=== PATIENT | male | born 1955 | race Caucasian/White ===

== ENCOUNTER 2022-02-01 08:01 | Day surgery (SDC) | payer MEDICARE, OTHER ==
[2022-01-25 10:06] LABS: CLARITY,URINE CLEAR (Clear); COLOR,URINE YELLOW (Yellow); GLUCOSE, URINE NEGATIVE (Neg); KETONES,URINE NEGATIVE (Neg); LEUKOCYTE ESTERASE ,URINE NEGATIVE (Neg); NITRITES, URINE NEGATIVE (Neg); OCCULT BLOOD,URINE NEGATIVE (Neg); PH,URINE 5.5 (4.8-8.0); PROTEIN,URINE NEGATIVE (Neg); UROBILINOGEN,URINE 0.2 E.U/dL (0.2-1.0)
[2022-01-25 10:09] LABS: UA COLLECTION TYPE CLN CATCH MIDSTREAM
[2022-01-25 10:14] LABS: BASOPHILS # (AUTO) 0.1 X10'3 (0-0.2); BASOPHILS % (AUTO) 0.8 % (0-1); EOSINOPHILS # (AUTO) 0.1 X10'3 (0-0.9); EOSINOPHILS % (AUTO) 2.3 % (0-6); LYMPHOCYTES # (AUTO) 1.5 X10'3 (1.1-4.8); LYMPHOCYTES % (AUTO) 24.2 % (21-51); MEAN CORPUSCULAR HEMOGLOBIN 35.5 PG (27.0-31.0); MEAN CORPUSCULAR HGB CONC 34.6 g/dL (33.0-36.5); MEAN CORPUSCULAR VOLUME 102.7 FL (78-98); MEAN PLATELET VOLUME 7.5 FL (7.4-10.4); MONOCYTES # (AUTO) 0.7 X10'3 (0-0.9); MONOCYTES % (AUTO) 11.7 % (2-12); NEUTROPHILS # (AUTO) 3.8 X10'3 (1.8-7.7); PRE OP HEMATOCRIT 45.8 % (42.0-52.0); PRE OP HEMOGLOBIN 15.8 g/dL (14.0-17.9); PRE OP PLATELET COUNT 227 X10'3 (140-440); RED BLOOD COUNT 4.46 X10'6 (4.70-6.10); RED CELL DISTRIBUTION WIDTH 13.4 % (11.5-14.5)
[2022-01-25 10:20] LABS: ALBUMIN 3.4 G/DL (3.4-5.0); ALBUMIN/GLOBULIN RATIO 0.9 (1.1-1.5); ALKALINE PHOSPHATASE 72 IU/L (46-116); BLOOD UREA NITROGEN 10 MG/DL (7-18); BUN/CREATININE RATIO 10.6 (5.4-32.0); CALCIUM 8.7 MG/DL (8.5-10.1); CHLORIDE 103 MMOL/L (99-107); CREATININE 0.94 MG/DL (0.60-1.10); PRE OP ALT 27 U/L (30-65); PRE OP ANION GAP 9 (8-16); PRE OP AST 19 U/L (10-37); PRE OP BILIRUB, TOTAL 0.7 MG/DL (0.0-1.0); PRE OP GLUCOSE 111 MG/DL (70-104); PRE OP POTASSIUM 3.9 MMOL/L (3.4-5.1); PRE OP SODIUM 141 MMOL/L (135-145); TOTAL CARBON DIOXIDE 29.2 MMOL/L (24-32); TOTAL PROTEIN 7.2 G/DL (6.4-8.2); eGFR 81 ML/MIN
[2022-02-01] VITALS (18 sets, daily range): BP systolic 107–162; BP diastolic 60–88
[~2022-02-01] VITALS: Ht 167.6 cm; Wt 49.9 kg
[~2022-02-01 08:01] MED LIST: NO HOME MEDS; ceFAZolin inj. 2,000 MG in dextrose 5%-water 100 ML IV ONE; famotidine 20mg tablet PO ONE; ringers solution, lacted 1,000 ML IV SCH
[2022-02-01] MEDS ORDERED: albuterol 2.5 MG/3 ML nebule NEB ONE (08:45)
[2022-02-01] MEDS ORDERED: ipratropium/albuterol 3ml nebule NEB PRN ×2 (09:05→12:15)
[2022-02-01] MEDS ORDERED: meperidine/PF 25mg/ml syringe IV PRN ×6 (09:15→11:00)
[2022-02-01] MEDS ORDERED: morphine 2 MG/ML inj. syringe IV PRN ×2 (09:15→11:00)
[2022-02-01] MEDS ORDERED: ondansetron/PF 4mg/2ml inj IV PRN ×2 (09:15→11:00)
[2022-02-01] MEDS ORDERED: proCHLORperazine 10 MG/2 ml inj IV PRN ×2 (09:15→11:00)
[2022-02-01] MEDS ORDERED: morphine 4 MG/ML inj SYRINge IV PRN ×2 (09:15→11:00)
[2022-02-01] MEDS ORDERED: ringers solution, lacted 1,000 ML IV SCH ×2 (09:15→11:00)
[2022-02-01] MEDS ORDERED: sevoflurane 250ml liquid IH ONE (09:52)
[2022-02-01] MEDS ORDERED: ondansetron/PF 4mg/2ml inj ONE (09:52)
[2022-02-01] MEDS ORDERED: BUPIVAcaine/PF 2.5 mg/ml (0.25%) 30ml vial ONE (09:55)
[2022-02-01] MEDS ORDERED: fentaNYL/PF 50MCG/1 ML 2ML syringe ONE (10:00)
[2022-02-01] MEDS ORDERED: midazolam 1 mg/ML 2ml injection ONE (10:00)
[2022-02-01] MEDS ORDERED: propofol inj 20 ML IV ONE (10:03)
[2022-02-01] MEDS ORDERED: LIDOcaine 2% (20mg/ml) 5ml vial ONE (10:03)
[2022-02-01] MEDS ORDERED: LIDOcaine 2% jelly 6ml syringe ***for topical use only ONE (10:20)
[2022-02-01] MEDS ORDERED: dexamethasone sod phosphate 4mg/ml inj. ONE (10:58)
[2022-02-01] MEDS ORDERED: morphine 4 MG/ML inj SYRINge ONE (10:58)
[2022-02-01] MEDS ORDERED: rocuronium 10mg/ml inj IV ONE (10:58)
--- NOTE | 2022-02-01 12:11 | NUR ---
Received from OR via [facility], accompanied by Anesthesiologist and report given by HUMBERTO Anesthesiologist. PATIENT WAKING UP, DENIES PAIN, V/S WNL, PIV 20G MARI, DERMONDVASYL LAPS SITES CLOSED CDI TO ABDOMEN. Addendum: 02/01/22 at 1244 by Ck Sosa RN Amended: Links added.
--- NOTE | 2022-02-01 15:01 | NUR ---
ALL DISCHARGE CRITERIA HAS BEEN MET. VSS, PAIN AT A TOLERABLE LEVEL, VOIDING AND ABLE TO SAFELY AMBULATE AND TRANSFER SELF. IV TAKEN OUT WITHOUT ANY COMPLICATIONS. ALL DISCHARGE INSTRUCTIONS COVERED WITH PATIENT AND ALL QUESTIONS ANSWERED. PATIENT TAKEN OUT VIA WHEELCHAIR WITH ALL BELONGINGS TO PERSONAL VEHICLE WHERE FAMILY DROVE PATIENT HOME. Addendum: 02/01/22 at 1515 by Ck Sosa RN Amended: Links added.
== END 2022-02-01 15:01 | disposition home or self-care (01) ==
LOC: PAS 08:01
PROVIDERS: ATTEND Surgery
DX: K40.91 Unilateral inguinal hernia, without obstruction or gangrene, recurrent (principal); F17.210 Nicotine dependence, cigarettes, uncomplicated; Z79.899 Other long term (current) drug therapy; Z98.890 Other specified postprocedural states; J44.9 Chronic obstructive pulmonary disease, unspecified
CPT/HCPCS: 36415; 49651; 71046; 80053; 81003; 82948; 85025; 87811; 93005; 94640; 94664; 94760; C1758; C1781; J0690; J1100; J2250; J2270; J2405; J2704; J3010; J3490; J7030; J7060; J7120; Z7506; Z7508; Z7512; A4215; A4618

== ENCOUNTER 2024-03-30 11:47 | Inpatient (IN) | payer MEDICARE, OTHER ==
[~2024-03-30] VITALS: Ht 167.6 cm; Wt 46.6 kg
[2024-03-30] VITALS (9 sets, daily range): BP systolic 93; BP diastolic 55; PULSE 100–122; RESP 16–22; TEMP 98; O2SAT 89–98
[~2024-03-30 11:47] MED LIST changes: -ceFAZolin inj. 2,000 MG in dextrose 5%-water 100 ML IV ONE; -famotidine 20mg tablet PO ONE; -ringers solution, lacted 1,000 ML IV SCH
[2024-03-30 12:02] LABS: BASOPHILS # (AUTO) 0.1 X10'3 (0-0.2); BASOPHILS % (AUTO) 0.6 % (0-1); EOSINOPHILS % (AUTO) 0.5 % (0-6); HEMATOCRIT 51.2 % (42.0-52.0); HEMOGLOBIN 17.1 g/dl (14.0-17.9); LYMPHOCYTES # (AUTO) 2.1 X10'3 (1.1-4.8); LYMPHOCYTES % (AUTO) 25.2 % (21-51); MEAN CORPUSCULAR HEMOGLOBIN 35.6 PG (27.0-31.0); MEAN CORPUSCULAR HGB CONC 33.5 g/dL (33.0-36.5); MEAN CORPUSCULAR VOLUME 106.4 FL (78-98); MEAN PLATELET VOLUME 7.3 FL (7.4-10.4); MONOCYTES # (AUTO) 0.8 X10'3 (0-0.9); MONOCYTES % (AUTO) 8.9 % (2-12); NEUTROPHILS # (AUTO) 5.5 X10'3 (1.8-7.7); NEUTROPHILS % (AUTO) 64.8 % (42-75); PLATELET COUNT 228 X10'3 (140-440); RED BLOOD COUNT 4.81 X10'6 (4.70-6.10); RED CELL DISTRIBUTION WIDTH 13.2 % (11.5-14.5); WHITE BLOOD COUNT 8.4 X10'3 (4.5-11.0)
[2024-03-30 12:14] LABS: ALANINE AMINOTRANSFERASE 23 U/L (12-78); ALBUMIN 3.6 G/DL (3.4-5.0); ALBUMIN/GLOBULIN RATIO 0.9 (1.1-1.5); ALKALINE PHOSPHATASE 92 IU/L (46-116); ANION GAP 11 (8-16); ASPARTATE AMINO TRANSFERASE 30 U/L (10-37); BILIRUBIN,TOTAL 0.9 MG/DL (0.1-1.0); BLOOD UREA NITROGEN 10 MG/DL (7-18); BUN/CREATININE RATIO 8.3 (10.0-20.0); CALCIUM 9.2 MG/DL (8.5-10.1); CHLORIDE 102 MMOL/L (99-107); GLUCOSE 156 MG/DL (70-104); POTASSIUM 4.8 MMOL/L (3.5-5.1); SODIUM 139 MMOL/L (135-145); TOTAL PROTEIN 7.6 G/DL (6.4-8.2); eGFR 60 ML/MIN
[2024-03-30 12:21] LABS: PRO BRAIN NATRIURETIC PEPTIDE 2520 PG/ML (0-125)
[2024-03-30] MEDS: ipratropium/albuterol 3ml nebule NEB PRN (12:48)
[2024-03-30] MEDS ORDERED: iohexol 350MG/ML 100ml bottle IV ONE (13:31)
[2024-03-30] MEDS ORDERED: nicotine prolacrilex 2mg gum BC PRN (13:40)
[2024-03-30] MEDS ORDERED: NICOTINE POLACRILEX 2 MG LOZENGE BC PRN (13:40)
[2024-03-30] MEDS: nicotine 21mg patch - 24 hr TD ONE (14:09)
[2024-03-30] MEDS: LORazepam 2 mg/ml vial IV ONE (14:09)
[2024-03-30] MEDS ORDERED: magnesium sulf-water 4G/100mL 100 ML IV PRN (15:45)
[2024-03-30] MEDS ORDERED: mag hydrox/Alum hydrox/simeth 30ml oral suspension PO PRN (15:45)
[2024-03-30] MEDS ORDERED: ondansetron/PF 4mg/2ml inj IV PRN (15:45)
[2024-03-30] MEDS ORDERED: acetaminophen 325mg tablet PO PRN ×2 (15:45)
[2024-03-30] MEDS ORDERED: HYDROcodone/acetaminophen 5mg/325mg tablet PO PRN (15:45)
[2024-03-30] MEDS ORDERED: HYDROcodone/acetaminophen 10/325mg tab PO PRN (15:45)
[2024-03-30] MEDS ORDERED: potassium Cl 40MEQ/1/2NS 520ml 520 ML IV PRN (15:45)
[2024-03-30] MEDS ORDERED: potassium Cl 20 mEq SR tablet PO PRN ×2 (15:45)
[2024-03-30] MEDS ORDERED: magnesium hydroxide 30ml (MOM) UD suspension PO PRN (15:45)
[2024-03-30] MEDS ORDERED: magnesium sulf-water 2g/50mL 50 ML IV PRN (15:45)
[2024-03-30 15:54] LABS: PROTHROMBIN TIME 10.9 SECONDS (9.0-12.0)
[2024-03-30] MEDS ORDERED: ipratropium/albuterol 3ml nebule NEB PRN (16:00)
[2024-03-30] MEDS: heparin 10,000 units/1 ML INJ IV ONE (16:21)
[2024-03-30] MEDS: heparin 25,000 UNIT/250ml bag 250 ML IV PRN (16:24)
[2024-03-30] MEDS: MESSAGE TO NURSING IV ONE (16:26)
[2024-03-30] MEDS: HEPARIN DRIP DVT/PE -**PHARMACIST TO DOSE IV ONE (16:26)
[2024-03-30] MEDS: methylPREDNISolone sod succ 125mg/2ml vial IV SCH (18:20)
[2024-03-30] MEDS ORDERED: LORazepam 1 MG tablet PO PRN (18:30)
[2024-03-30] MEDS ORDERED: haloperidol lactate 5mg/ml inj IM PRN (18:30)
[2024-03-30] MEDS ORDERED: haloperidol 5mg tablet PO PRN (18:30)
[2024-03-30 19:02] LABS: ABG BASE EXCESS -1.9 mmol/L (-2.0-3.0); ABG HCO3 20.9 mmol/L (21.0-28.0); ABG OXYGEN SATURATION 95.1 % (94.0-98.0); ABG PH (T) 7.447 (7.350-7.450); ABG PO2 (T) 80.6 mmHg (83.0-108.0); ALLEN'S TEST POSITIVE; FCOHb 0.8 % (0.5-1.5); FHHb 4.8 % (0.0-5.0); FLOW 3 L/min; FMetHb 0.3 % (0.0-1.5); FO2Hb 94.1 % (94.0-98.0); MODE NASAL CANNULA; TOTAL HEMOGLOBIN 16.1 G/dl (13.5-17.5)
[2024-03-30] MEDS: nicotine 14mg patch - 24hr TD SCH (19:30)
[2024-03-30] MEDS: ipratropium/albuterol 3ml nebule NEB SCH (19:35)
[2024-03-30] MEDS: thiamine 100mg tablet PO SCH (19:49)
[2024-03-30] MEDS: folic acid 1mg tablet PO SCH (19:49)
[2024-03-30] MEDS: methylPREDNISolone sod succ 125mg/2ml vial IV STA (19:50)
[2024-03-30] MEDS: docusate sod 100mg capsule PO SCH (20:00)
[2024-03-30] MEDS: K and/or MAG REPLACEMENT MC SCH (20:00)
[2024-03-30] MEDS: CefTRIAXone 2gm/D5W 50ml BAG 50 ML IV SCH (20:06)
[2024-03-30] MEDS: azithromycin/NS 500mg/250ml 250 ML IV SCH (20:06)
[2024-03-30] MEDS: LORazepam 2 mg/ml vial IV PRN (20:07)
[2024-03-30 21:00] LABS: BILIRUBIN,URINE NEGATIVE (Neg); CLARITY,URINE CLEAR (Clear); COLOR,URINE STRAW (Yellow); GLUCOSE, URINE NEGATIVE (Neg); KETONES,URINE TRACE mg/dl (Neg); LEUKOCYTE ESTERASE ,URINE NEGATIVE (Neg); NITRITES, URINE NEGATIVE (Neg); OCCULT BLOOD,URINE NEGATIVE (Neg); PH,URINE 6.5 (4.8-8.0); PROTEIN,URINE NEGATIVE (Neg); UROBILINOGEN,URINE 0.2 E.U/dL (0.2-1.0)
[2024-03-30 21:02] LABS: UA COLLECTION TYPE URINAL
[2024-03-30] MEDS: atorvastatin 20mg tablet PO SCH (22:38)
[2024-03-31] VITALS (13 sets, daily range): BP systolic 98–154; BP diastolic 52–74; PULSE 78–109; RESP 16–30; TEMP 97.4–98.7; O2SAT 93–98
[2024-03-31 00:56] LABS: ALANINE AMINOTRANSFERASE 23 U/L (12-78); ALBUMIN 3.3 G/DL (3.4-5.0); ALBUMIN/GLOBULIN RATIO 0.8 (1.1-1.5); ALKALINE PHOSPHATASE 85 IU/L (46-116); ANION GAP 14 (8-16); ASPARTATE AMINO TRANSFERASE 31 U/L (10-37); BILIRUBIN,TOTAL 0.4 MG/DL (0.1-1.0); BLOOD UREA NITROGEN 10 MG/DL (7-18); BUN/CREATININE RATIO 8.5 (10.0-20.0); CALCIUM 8.8 MG/DL (8.5-10.1); CHLORIDE 104 MMOL/L (99-107); CREATININE 1.17 MG/DL (0.60-1.10); GLUCOSE 157 MG/DL (70-104); SODIUM 142 MMOL/L (135-145); TOTAL CARBON DIOXIDE 23.7 MMOL/L (24-32); TOTAL PROTEIN 7.3 G/DL (6.4-8.2); eCRCL 40 ML/MIN; eGFR 62 ML/MIN
[2024-03-31 01:02] LABS: POTASSIUM 4.1 MMOL/L (3.5-5.1)
[2024-03-31] MEDS: heparin 10,000 units/1 ML INJ IV PRN (01:30)
[2024-03-31] MEDS: MESSAGE TO NURSING IV ONE ×4 (02:08→20:35)
[2024-03-31] MEDS: methylPREDNISolone sod succ 125mg/2ml vial IV SCH (02:09)
[2024-03-31 07:14] LABS: BASOPHILS % (AUTO) 0.2 % (0-1); EOSINOPHILS % (AUTO) 0 % (0-6); HEMATOCRIT 43.8 % (42.0-52.0); HEMOGLOBIN 14.9 g/dl (14.0-17.9); LYMPHOCYTES # (AUTO) 0.7 X10'3 (1.1-4.8); LYMPHOCYTES % (AUTO) 10.4 % (21-51); MEAN CORPUSCULAR HEMOGLOBIN 35.8 PG (27.0-31.0); MEAN CORPUSCULAR HGB CONC 33.9 g/dL (33.0-36.5); MEAN CORPUSCULAR VOLUME 105.6 FL (78-98); MEAN PLATELET VOLUME 8.5 FL (7.4-10.4); MONOCYTES # (AUTO) 0.1 X10'3 (0-0.9); MONOCYTES % (AUTO) 1.5 % (2-12); NEUTROPHILS % (AUTO) 87.9 % (42-75); PLATELET COUNT 189 X10'3 (140-440); RED BLOOD COUNT 4.15 X10'6 (4.70-6.10); WHITE BLOOD COUNT 6.9 X10'3 (4.5-11.0)
[2024-03-31] MEDS: MULTIVIT-MIN/FERROUS GLUCONATE 9 MG/15 ML LIQUID PO SCH (15:35)
[2024-03-31] MEDS: benzonatate 100mg capsule PO PRN (17:39)
[2024-03-31] MEDS: lactose-reduced food (Ensure Enlive) - 237ml bottle PO SCH (17:42)
[2024-03-31] MEDS ORDERED: CefTRIAXone 2gm/D5W 50ml BAG 50 ML IV SCH (20:00)
[2024-03-31] MEDS ORDERED: azithromycin/NS 500mg/250ml 250 ML IV SCH (20:00)
[2024-03-31] MEDS: temazepam 15mg capsule PO PRN (21:58)
[2024-04-01] VITALS (10 sets, daily range): BP systolic 106–112; BP diastolic 69; PULSE 77–106; RESP 16–30; TEMP 98.2; O2SAT 94–98
[2024-04-01 03:19] LABS: BASOPHILS % (AUTO) 0.2 % (0-1); EOSINOPHILS % (AUTO) 0 % (0-6); HEMOGLOBIN 13.9 g/dl (14.0-17.9); LYMPHOCYTES # (AUTO) 0.9 X10'3 (1.1-4.8); LYMPHOCYTES % (AUTO) 5.6 % (21-51); MEAN CORPUSCULAR HEMOGLOBIN 35.8 PG (27.0-31.0); MEAN CORPUSCULAR VOLUME 105.4 FL (78-98); MEAN PLATELET VOLUME 7.3 FL (7.4-10.4); MONOCYTES # (AUTO) 0.5 X10'3 (0-0.9); MONOCYTES % (AUTO) 3.5 % (2-12); NEUTROPHILS # (AUTO) 13.8 X10'3 (1.8-7.7); NEUTROPHILS % (AUTO) 90.7 % (42-75); PLATELET COUNT 195 X10'3 (140-440); RED BLOOD COUNT 3.89 X10'6 (4.70-6.10); RED CELL DISTRIBUTION WIDTH 12.9 % (11.5-14.5); WHITE BLOOD COUNT 15.3 X10'3 (4.5-11.0)
[2024-04-01 03:36] LABS: ALANINE AMINOTRANSFERASE 22 U/L (12-78); ALBUMIN 2.8 G/DL (3.4-5.0); ALBUMIN/GLOBULIN RATIO 0.8 (1.1-1.5); ALKALINE PHOSPHATASE 62 IU/L (46-116); ANION GAP 6 (8-16); ASPARTATE AMINO TRANSFERASE 23 U/L (10-37); BILIRUBIN,TOTAL 0.3 MG/DL (0.1-1.0); BLOOD UREA NITROGEN 11 MG/DL (7-18); CALCIUM 8.5 MG/DL (8.5-10.1); CHLORIDE 110 MMOL/L (99-107); CREATININE 0.92 MG/DL (0.60-1.10); GLUCOSE 163 MG/DL (70-104); MAGNESIUM 2.2 MG/DL (1.5-2.4); SODIUM 146 MMOL/L (135-145); TOTAL CARBON DIOXIDE 30.2 MMOL/L (24-32); TOTAL PROTEIN 6.1 G/DL (6.4-8.2); eCRCL 51 ML/MIN; eGFR 82 ML/MIN
[2024-04-01] MEDS: MESSAGE TO NURSING IV ONE ×2 (04:55→11:18)
[2024-04-01] MEDS: furosemide 40mg/4ml inj IV SCH (11:18)
[2024-04-01] MEDS: apixaban 5mg tablet PO SCH (12:12)
[2024-04-01] MEDS: tamsulosin 0.4mg capsule PO SCH (20:22)
[2024-04-02] VITALS (20 sets, daily range): BP systolic 101–157; BP diastolic 63–87; PULSE 84–104; RESP 16–25; TEMP 97.2–97.9; O2SAT 90–100
[2024-04-02 07:15] LABS: BASOPHILS % (AUTO) 0.1 % (0-1); EOSINOPHILS % (AUTO) 0 % (0-6); HEMOGLOBIN 14.6 g/dl (14.0-17.9); LYMPHOCYTES # (AUTO) 0.7 X10'3 (1.1-4.8); LYMPHOCYTES % (AUTO) 4.7 % (21-51); MEAN CORPUSCULAR HEMOGLOBIN 35.1 PG (27.0-31.0); MEAN CORPUSCULAR HGB CONC 33.3 g/dL (33.0-36.5); MEAN CORPUSCULAR VOLUME 105.5 FL (78-98); MEAN PLATELET VOLUME 8.2 FL (7.4-10.4); MONOCYTES # (AUTO) 0.4 X10'3 (0-0.9); NEUTROPHILS # (AUTO) 12.9 X10'3 (1.8-7.7); NEUTROPHILS % (AUTO) 92.2 % (42-75); PLATELET COUNT 196 X10'3 (140-440); RED BLOOD COUNT 4.17 X10'6 (4.70-6.10); WHITE BLOOD COUNT 13.9 X10'3 (4.5-11.0)
[2024-04-02 07:49] LABS: ALANINE AMINOTRANSFERASE 25 U/L (12-78); ALBUMIN/GLOBULIN RATIO 0.9 (1.1-1.5); ALKALINE PHOSPHATASE 67 IU/L (46-116); ANION GAP 7 (8-16); ASPARTATE AMINO TRANSFERASE 31 U/L (10-37); BILIRUBIN,TOTAL 0.3 MG/DL (0.1-1.0); BLOOD UREA NITROGEN 15 MG/DL (7-18); BUN/CREATININE RATIO 15.6 (10.0-20.0); CALCIUM 8.6 MG/DL (8.5-10.1); CHLORIDE 105 MMOL/L (99-107); CHOLESTEROL 184 MG/DL (0-200); CREATININE 0.96 MG/DL (0.60-1.10); GLUCOSE 156 MG/DL (70-104); HDL CHOLESTEROL 92 MG/DL (35-60); LDL CHOLESTEROL 65 MG/DL (50-100); MAGNESIUM 2.4 MG/DL (1.5-2.4); POTASSIUM 3.6 MMOL/L (3.5-5.1); SODIUM 143 MMOL/L (135-145); TOTAL CARBON DIOXIDE 30.9 MMOL/L (24-32); TOTAL PROTEIN 6.5 G/DL (6.4-8.2); TRIGLYCERIDES 82 MG/DL (20-135); eCRCL 49 ML/MIN; eGFR 78 ML/MIN
[2024-04-02] MEDS: guaiFENesin 200mg/20mg codeine phos 10ml UD oral syrup PO PRN (20:43)
[2024-04-03 05:04] LABS: BASOPHILS % (AUTO) 0.2 % (0-1); EOSINOPHILS % (AUTO) 0 % (0-6); HEMATOCRIT 42.6 % (42.0-52.0); HEMOGLOBIN 14.3 g/dl (14.0-17.9); LYMPHOCYTES # (AUTO) 0.4 X10'3 (1.1-4.8); MEAN CORPUSCULAR HEMOGLOBIN 35.7 PG (27.0-31.0); MEAN CORPUSCULAR HGB CONC 33.6 g/dL (33.0-36.5); MEAN CORPUSCULAR VOLUME 106.1 FL (78-98); MEAN PLATELET VOLUME 8.2 FL (7.4-10.4); MONOCYTES # (AUTO) 0.4 X10'3 (0-0.9); MONOCYTES % (AUTO) 3.9 % (2-12); NEUTROPHILS # (AUTO) 9.2 X10'3 (1.8-7.7); NEUTROPHILS % (AUTO) 91.9 % (42-75); PLATELET COUNT 183 X10'3 (140-440); RED BLOOD COUNT 4.02 X10'6 (4.70-6.10); RED CELL DISTRIBUTION WIDTH 13.2 % (11.5-14.5)
[2024-04-03 05:19] LABS: ALANINE AMINOTRANSFERASE 46 U/L (12-78); ALBUMIN 2.8 G/DL (3.4-5.0); ALBUMIN/GLOBULIN RATIO 0.9 (1.1-1.5); ALKALINE PHOSPHATASE 71 IU/L (46-116); ANION GAP 4 (8-16); ASPARTATE AMINO TRANSFERASE 49 U/L (10-37); BILIRUBIN,TOTAL 0.3 MG/DL (0.1-1.0); BLOOD UREA NITROGEN 17 MG/DL (7-18); BUN/CREATININE RATIO 20.2 (10.0-20.0); CALCIUM 8.9 MG/DL (8.5-10.1); CHLORIDE 105 MMOL/L (99-107); CREATININE 0.84 MG/DL (0.60-1.10); GLUCOSE 138 MG/DL (70-104); MAGNESIUM 2.4 MG/DL (1.5-2.4); POTASSIUM 3.3 MMOL/L (3.5-5.1); SODIUM 143 MMOL/L (135-145); TOTAL CARBON DIOXIDE 33.7 MMOL/L (24-32); eCRCL 55 ML/MIN; eGFR > 90 ML/MIN
[2024-04-03 06:00] VITALS: BP 112/77; PULSE 72; RESP 18; TEMP 97.5; O2SAT 97
[2024-04-03 08:04] VITALS: PULSE 81; RESP 20; O2SAT 98
[2024-04-03 08:09] VITALS: PULSE 79; RESP 20
[2024-04-03] MEDS ORDERED: magnesium sulf-water 4G/100mL 100 ML IV PRN (08:15)
[2024-04-03] MEDS ORDERED: magnesium Cl slow-release 64mg tablet PO PRN (08:15)
[2024-04-03] MEDS ORDERED: potassium Cl 40MEQ/1/2NS 520ml 520 ML IV PRN (08:15)
[2024-04-03] MEDS ORDERED: magnesium sulf-water 2g/50mL 50 ML IV PRN (08:15)
[2024-04-03 09:15] VITALS: RESP 18; O2SAT 97
[2024-04-03] MEDS: potassium Cl 20 mEq SR tablet PO PRN ×2 (09:40→14:38)
[2024-04-03 11:51] VITALS: BP 108/76; PULSE 78; RESP 16; TEMP 97.5; O2SAT 99
[2024-04-03] MEDS ORDERED: tamsulosin capsule PO (13:13)
[2024-04-03] MEDS ORDERED: PANT40SU2 PO (13:13)
[2024-04-03] MEDS ORDERED: IPRA3AMP9 NEB (13:13)
[2024-04-03] MEDS ORDERED: LEVO-65 PO (13:13)
[2024-04-03] MEDS ORDERED: PRED10TA23 PO (13:13)
[2024-04-03] MEDS ORDERED: ATOR20TA66 PO (13:13)
[2024-04-03] MEDS ORDERED: AMOX-419 PO (13:16)
[2024-04-03] MEDS ORDERED: BENZ-111 PO (13:50)
[2024-04-03] MEDS ORDERED: NICO-631 TD (13:50)
[2024-04-03] MEDS ORDERED: APIX5TAB3 PO (13:50)
[2024-04-04] MEDS ORDERED: azithromycin 250mg tablet PO SCH (08:00)
[2024-04-08] MEDS ORDERED: apixaban 5mg tablet PO SCH (08:00)
== END 2024-04-03 17:00 | disposition home health service (06) | DRG 871 ==
LOC: ER 11:47 → ED HOLD 15:57 → EDBEDREQ 21:25 → PCU 3S 22:00 → SUR 3N 04-02 17:12
PROVIDERS: ADMIT Nurse Practitioner Family; ATTEND Nurse Practitioner Family
PROC: B32T1ZZ Computerized Tomography (CT Scan) of Left Pulmonary Artery using Low Osmolar Contrast (ICD-10-PCS; principal; 2024-03-30)
PROC: B3201ZZ Computerized Tomography (CT Scan) of Thoracic Aorta using Low Osmolar Contrast (ICD-10-PCS; 2024-03-30)
PROC: B32S1ZZ Computerized Tomography (CT Scan) of Right Pulmonary Artery using Low Osmolar Contrast (ICD-10-PCS; 2024-03-30)
DX: A41.9 Sepsis, unspecified organism (principal); I21.A1 Myocardial infarction type 2; I26.99 Other pulmonary embolism without acute cor pulmonale; J96.01 Acute respiratory failure with hypoxia; J18.9 Pneumonia, unspecified organism; J44.1 Chronic obstructive pulmonary disease with (acute) exacerbation; F10.20 Alcohol dependence, uncomplicated; R91.8 Other nonspecific abnormal finding of lung field; F17.210 Nicotine dependence, cigarettes, uncomplicated; E78.5 Hyperlipidemia, unspecified; K21.9 Gastro-esophageal reflux disease without esophagitis; J43.8 Other emphysema; K76.9 Liver disease, unspecified
CPT/HCPCS: 36415; 36600; 71045; 71275; 80053; 80061; 81003; 82803; 82948; 83605; 83735; 83880; 84145; 84484; 85018; 85025; 85610; 85730; 87040; 87081; 92508; 92616; 93005; 93306; 94640; 94760; 96374; 97116; 97161; 97530; 99291; A6258; A6260; C1758; G0378; J0456; J0696; J1644; J1940; J2060; J2919; J7030; J7040; Q9967

== ENCOUNTER 2024-06-13 13:30 | Emergency (ER) | payer MEDICARE, OTHER ==
[~2024-06-13 13:30] MED LIST changes: +APIX5TAB3 PO; +ATOR20TA66 PO; +BENZ-111 PO; +IPRA3AMP9 NEB; +NICO-631 TD; +PANT40SU2 PO; +tamsulosin capsule PO
== END 2024-06-13 15:56 | disposition left against medical advice (07) ==
LOC: ER 13:31
DX: E86.0 Dehydration (principal); Z53.21 Procedure and treatment not carried out due to patient leaving prior to being seen by health care provider